=== PATIENT | male | born 1955 | race Caucasian/White ===

== ENCOUNTER 2017-09-11 07:15 | Emergency (ER) | payer MEDICARE, MEDICAID ==
[~2017-09-11] VITALS: Ht 193 cm; Wt 102.1 kg
[~2017-09-11 07:15] MED LIST: ASPI-1169 PO; BENA20TA9 PO; CARV3.122 PO; DAPA10TA PO; EZET10TA14 PO; LACT10SO PO; METF-440 PO; SENN-18 PO; SIME180C47 PO; SIMV10TA6 PO
--- NOTE | 2017-09-11 07:25 | NUR ---
RECIEVED PT TO ED BED 15. PT WAS [id number] FROM HOME, LOWER BACK PAIN, CONSTIPATUION. LAST BM 3 DAYS AGO. PT IS AMBULATORY, NAD WILL CONT TO MONITOR
[2017-09-11] MEDS ORDERED: KETOROLAC TROMETHAMINE INJ 30 MG/ML VIAL ONE (08:22)
[2017-09-11 08:23] LABS: BASOPHILS % (AUTO) 0.2 % (0.0-2.0); EOSINOPHILS % (AUTO) 0.3 % (0.0-6.0); HEMATOCRIT 37 % (39-51); HEMOGLOBIN 12.9 g/dL (13.5-17.5); LYMPHOCYTES # (AUTO) 0.7 /CMM (0.8-4.8); LYMPHOCYTES % (AUTO) 16.3 % (20.0-44.0); MEAN CORPUSCULAR HGB CONC 35 g/dl (31.0-36.0); MEAN CORPUSCULAR VOLUME 92 fL (80-96); MONOCYTES # (AUTO) 0.6 /CMM (0.1-1.30); MONOCYTES % (AUTO) 13.1 % (2.0-12.0); NEUTROPHILS % (AUTO) 70.1 % (43.0-81.0); PLATELET COUNT (AUTO) 142 /CMM (150-450); RDW COEFFICIENT OF VARIATION 14.9 (11.5-15.0); RED BLOOD CELL COUNT(AUTO) 3.99 MIL/uL (4.5-6.0); WHITE BLOOD COUNT (AUTO) 4.3 K/uL (4.3-11.0)
[2017-09-11] MEDS ORDERED: IV NS 0.9% 500 ML BAG IV ONE (08:30)
[2017-09-11] MEDS ORDERED: KETOROLAC TROMETHAMINE INJ 30 MG/ML VIAL IV ONE (08:30)
[2017-09-11 08:35] LABS: CREATININE 0.8 mg/dL (0.6-1.3)
[2017-09-11] MEDS ORDERED: HYDROCODONE/APAP 5/325MG 1 EACH TABLET PO ONE (10:30)
[2017-09-11] MEDS ORDERED: HYDROCODONE/APAP 5/325MG 1 EACH TABLET ONE (10:34)
[2017-09-11] MEDS ORDERED: MAGNESIUM CITRATE 296 ML BOTTLE ONE (11:51)
--- NOTE | 2017-09-11 11:51 | NUR ---
Patient discharged to home in stable condition. Written and verbal after care instructions given. Patient verbalizes understanding of instruction.
[2017-09-11] MEDS ORDERED: MAGNESIUM CITRATE 296 ML BOTTLE PO ONE (12:00)
[2017-09-11 12:41] VITALS: BP 135/82
== END 2017-09-11 12:41 | disposition home or self-care (01) ==
LOC: ER 07:17
DX: K59.09 Other constipation (principal); M54.5 Low back pain; I10 Essential (primary) hypertension; E11.9 Type 2 diabetes mellitus without complications; F84.5 Asperger's syndrome; Z85.048 Personal history of other malignant neoplasm of rectum, rectosigmoid junction, and anus; Z90.89 Acquired absence of other organs; Z79.82 Long term (current) use of aspirin
CPT/HCPCS: 36415; 74018; 80048-TC; 85025-TC; A4606; J1885; J7030; Z7610